=== PATIENT | male | born 1995 | race Two or more races ===

== ENCOUNTER 2021-08-21 15:19 | Emergency (ER) | payer OTHER ==
[~2021-08-21] VITALS: Ht 182.9 cm; Wt 106.6 kg
[2021-08-21] MEDS ORDERED: ONDANSETRON HCL/PF 4 MG/2 ML VIAL IVP ONE (15:30)
[2021-08-21] MEDS ORDERED: IV NS 0.9% 1,000 ML BAG IV ONE (15:30)
[2021-08-21] MEDS ORDERED: LORAZEPAM INJ 2 MG/ML VIAL IVP ONE (15:30)
--- NOTE | 2021-08-21 15:49 | NUR ---
BIBS C/O HEAD SCRAPE S/P FALLING WHILE PLAYING HOCKEY, WANTS CT SCAN. VITALS WITHIN NORMAL LIMITS. BREATHING IS EVEN AND UNLABORED. AWAITING EVAL.
[2021-08-21 16:56] VITALS: BP 133/84
--- NOTE | 2021-08-21 16:56 | NUR ---
Patient discharged to home in stable condition. Written and verbal after care instructions given. Patient verbalizes understanding of instruction.
== END 2021-08-21 16:57 | disposition home or self-care (01) ==
LOC: ER 15:26
DX: S06.0X0A Concussion without loss of consciousness, initial encounter (principal); S00.01XA Abrasion of scalp, initial encounter; W18.30XA Fall on same level, unspecified, initial encounter; Y93.65 Activity, lacrosse and field hockey; Y92.89 Other specified places as the place of occurrence of the external cause; Y99.8 Other external cause status
CPT/HCPCS: 70450-TC